=== PATIENT | male | born 1930 | race Asian ===

== ENCOUNTER 2016-08-24 10:27 | Inpatient (IN) | payer OTHER ==
[~2016-08-24 10:27] MED LIST: ALBU0.5N6 IN; ALLO100T22 PO; ALUMSUS6 PO; AMLO2.5T PO; BISAC-EVAC10 MG RE; CLONIDINE0.2 MG PO; COLCRYS 0.6MG0.6 MG OR; ENTERIC COATED325 MG PO; ERTA1INJ2 INJ; LAXATIVE1 TAB OR; LISI10TA11 PO; MULT VITAMI1 OR; PANT40TA PO; ROBITUSS13 OR; TYLENOL325 MG OR
== END 2016-09-24 08:00 | disposition still patient (30) ==
LOC: PAVC 10:27
PROVIDERS: ADMIT Internal Medicine
DX: Z51.89 Encounter for other specified aftercare (principal)

== ENCOUNTER 2016-09-24 09:00 | Inpatient (IN) | payer OTHER | END 2016-10-25 12:38 | disposition still patient (30) | LOC: PAVC 09:00 | PROVIDERS: ADMIT Internal Medicine | DX: Z51.89 Encounter for other specified aftercare (principal) ==

== ENCOUNTER 2016-10-25 13:06 | Inpatient (IN) | payer OTHER | END 2016-11-22 13:23 | disposition still patient (30) | LOC: PAVC 13:06 | PROVIDERS: ADMIT Internal Medicine | DX: Z51.89 Encounter for other specified aftercare (principal) ==

== ENCOUNTER 2016-11-22 13:48 | Inpatient (IN) | payer OTHER | END 2016-12-23 08:15 | disposition still patient (30) | LOC: PAVC 13:48 | PROVIDERS: ADMIT Internal Medicine | DX: Z51.89 Encounter for other specified aftercare (principal) ==

== ENCOUNTER 2016-12-23 08:55 | Inpatient (IN) | payer OTHER | END 2017-01-22 11:00 | disposition still patient (30) | LOC: PAVC 08:55 | PROVIDERS: ADMIT Internal Medicine | DX: Z51.89 Encounter for other specified aftercare (principal) ==

== ENCOUNTER 2017-01-20 14:47 | Outpatient (CLI) | payer OTHER | END 2017-01-20 19:08 | disposition home or self-care (01) | LOC: LAB 14:47 | DX: Z16.24 Resistance to multiple antibiotics (principal) | CPT/HCPCS: 87081 ==

== ENCOUNTER 2017-01-22 12:12 | Inpatient (IN) | payer OTHER | END 2017-02-22 10:48 | disposition still patient (30) | LOC: PAVC 12:12 | PROVIDERS: ADMIT Internal Medicine | DX: Z51.89 Encounter for other specified aftercare (principal) ==

== ENCOUNTER 2017-02-18 18:15 | Outpatient (CLI) | payer OTHER | END 2017-02-18 19:04 | disposition home or self-care (01) | LOC: RAD 18:15 | DX: S09.8XXA Other specified injuries of head, initial encounter (principal); W18.39XA Other fall on same level, initial encounter; Y92.89 Other specified places as the place of occurrence of the external cause; Y99.8 Other external cause status ==

== ENCOUNTER 2017-02-22 11:12 | Inpatient (IN) | payer OTHER | END 2017-03-05 08:00 | disposition E | LOC: PAVC 11:12 | PROVIDERS: ADMIT Internal Medicine | DX: Z51.89 Encounter for other specified aftercare (principal) ==

== ENCOUNTER → 2017-03-05 07:35 | Outpatient (CLI) | payer OTHER | END | disposition E | LOC: AMB 07:35 | DX: I46.9 Cardiac arrest, cause unspecified (principal) | CPT/HCPCS: A0425; A0427 ==

== ENCOUNTER 2017-03-05 07:47 | Emergency (ER) | payer OTHER ==
[~2017-03-05] VITALS: Ht 175.3 cm; Wt 61.2 kg
== END 2017-03-05 09:26 | disposition expired ==
LOC: ED 07:47
DX: I46.9 Cardiac arrest, cause unspecified (principal)